=== PATIENT | female | born 1985 | race Caucasian/White ===

== ENCOUNTER 2022-01-01 13:37 | Emergency (ER) | payer OTHER, SELFPAY ==
[2022-01-01] VITALS (23 sets, daily range): BP systolic 126–174; BP diastolic 63–89; PULSE 71–94; RESP 19–38; TEMP 36.3; O2SAT 93–100; BMI 49.7
[2022-01-01 14:34] LABS: Add Manual Diff / Slide Review NO; Basophils Absolute Auto 0 /uL (0-100); Basophils Percent Auto 0.6 % (0-2); Eosinophils Absolute Auto 300 /uL (0-450); Eosinophils Percent Auto 4.2 % (2-4); Hematocrit 41.2 % (36-46); Hemoglobin 13.2 g/dL (12.0-16.0); Lymphocytes Absolute Auto 1300 /uL (1100-4500); Lymphocytes Percent Auto 21.5 % (25-40); Mean Corpuscular HGB Conc 32.2 % (30-36); Mean Corpuscular Hemoglobin 23.9 PG (26-34); Mean Corpuscular Volume 74.3 fL (80-100); Monocytes Absolute Auto 500 /uL (0-900); Monocytes Percent Auto 7.8 % (3-14); Neutrophils Absolute Auto 4100 /uL (1500-7000); Neutrophils Percent Auto 65.9 % (50-75); Platelet Count 198 X10^3/uL (150-400); Red Blood Cell Count 5.54 X10^6/uL (4.0-5.2); Red Cell Distribution Width 18.1 % (11.6-14.8); White Blood Cell Count 6.2 X10^3/uL (4.5-11.0)
[2022-01-01 14:45] LABS: Alanine Aminotransferase 230 IU/L (<35); Albumin 4.4 g/dL (3.5-5.0); Albumin Globulin Ratio 1.1 (1.0-2.8); Alkaline Phosphatase 209 U/L (38-126); Aspartate Aminotransferase 99 IU/L (14-36); BUN Creatinine Ratio 11.1 (6-22); Bilirubin Total 4.3 mg/dL (0.2-1.3); Blood Urea Nitrogen 8 mg/dL (7-17); Calcium 9.6 mg/dL (8.4-10.2); Carbon Dioxide 27 mmol/L (22-32); Chloride 102 mmol/L (98-107); Estimated Glomerular Filt Rate > 60.0 mL/min (>60); Globulin 3.9 g/dL (1.7-4.1); Glucose 107 mg/dL (70-100); HEMOLYSIS < 15 (0-50); Lipase 46 U/L (23-300); Potassium 3.8 mmol/L (3.4-5.1); Sodium 139 mmol/L (137-145); Total Protein 8.3 g/dL (6.3-8.2)
--- NOTE | 2022-01-01 17:10 | DI.US.S_ITS ---
PROCEDURE: US ABDOMEN COMPLETE INDICATIONS: JAUNDICE TECHNIQUE: Real-time scanning was performed of the abdominal and retroperitoneal organs, with image documentation. COMPARISON: None. FINDINGS: Liver: Liver is enlarged and measures 21.3 cm in length. Diffusely increased liver parenchymal echotexture is seen. No gross discrete hepatic lesion is noted. Gallbladder: Multiple stones are seen in dependent portion of gallbladder lumen. No gallbladder wall thickening or pericholecystic fluid. No sonographic Castorena sign. Biliary ducts: No definite intrahepatic biliary ductal dilatation is seen although evaluation is slightly limited due to poor penetration through the liver.. Extrahepatic bile duct caliber measures 10 mm. Normal is 6-7 mm or less in diameter, or 10 mm or less post-cholecystectomy. Pancreas: Pancreas is not visualized. Spleen: Spleen is normal in size and homogeneous in echotexture. Kidneys: Kidneys are normal in size and echotexture. Right kidney measures 10.4 cm long; left kidney measures 11 cm long. No gross hydronephrosis or nephrolithiasis. No gross solid masses. Aorta: Visualized aorta is normal in caliber at less than 3 cm. Iliacs: Not visualized IVC: Not visualized Miscellaneous: No free abdominal fluid. IMPRESSION: 1. Limited study due to poor penetration through the liver and overlying bowel gas. 2. Hepatomegaly and hepatic steatosis. No definite discrete hepatic lesion is seen. 3. Cholelithiasis. No sonographic evidence of acute cholecystitis. 4. Prominence of common bile duct. No definite choledocholithiasis is seen. No definite intrahepatic biliary ductal dilatation. Dictated by: Prateek Burch M.D. on 01/01/2022 at 17:51 Approved by: Prateek Burch M.D. on 01/01/2022 at 17:53
--- NOTE | 2022-01-01 18:56 | ED.ABDPAIN ---
HPI - Abdominal Pain General Chief Complaint: Abdominal Pain Stated Complaint: jaundice Time Seen by Provider: 01/01/22 17:04 Source: patient Mode of arrival: Family Vehicle History of Present Illness HPI narrative: 36F nonsmoker with a history of hypothyroid presents with family in the chief complaint of worsening epigastric and right upper quadrant pain, particularly after eating. She states that it radiates to her back. She has been having these issues off and on for a few months. She had engaged in 1 telehealth visit with her physician and was prescribed Bentyl which seems to help her pain. She started getting yellowing of her skin and quite itchy a few days ago and presents here for evaluation. She occasionally becomes nauseated and has little vomiting. She has had occasional loose stools but not any significant change. She denies any dysuria, frequency or urgency. She denies any alcohol or Tylenol use Related Data Home Medications Medication Instructions Recorded Confirmed leuprolide 3.75 mg intramuscular ONCE A MONTH #0 11/27/12 syringe kit (Lupron Depot) Previous Rx's Medication Instructions Recorded levothyroxine 125 mcg tablet 0.125 mg PO Q DAY #30 tab 09/08/16 (Levoxyl) Allergies Allergy/AdvReac Type Severity Reaction Status Date / Time INGREDIENT: NKDA - NO KNOWN Allergy Unknown Uncoded 01/18/18 12:15 DRUG ALLERGIES Review of Systems Review of Systems Narrative: GENERAL: See HP HEENT: Denies sinus pain, ear pain, sore throat, difficulty swallowing, dizziness. RESPIRATORY: Denies dyspnea, cough, wheezing, hemoptysis, sputum. CARDIOVASCULAR: Denies chest pain, palpitations, orthopnea, edema, GASTROINTESTINAL: See HPI : Denies dysuria, frequency, incontinence, hematuria, urinary retention. MUSCULOSKELETAL: denies weakness, joint pain, or bony pain SKIN: See HPI NEUROLOGIC: Denies weakness, headache, numbness, change in speech, confusion, seizures, incoordination. PSYCHIATRIC: No concerning psychosocial issues. 12 point review of systems is negative except for those stated above Patient History Surgical History Status post delivery (09/21/13) Status post laparotomy Status post LASIK surgery Social History Smoking Status: Never smoker Smoking Status: Never smoker alcohol intake frequency: 0-2 drinks per day Substance Use Type: does not use Exam Narrative Exam Narrative: GENERAL: [36] year old patient appears stated age. Well-developed patient, in mild distress. HEAD: Atraumatic. Normocephalic. EYES: Pupils equal round and reactive. Extraocular motions intact. Mild scleral icterus. No injection or drainage. ENT: Nose without bleeding, purulent drainage. Throat without erythema, tonsillar hypertrophy or exudate. Airway patent. NECK: Trachea midline. Non tender CARDIOVASCULAR: Regular rate and rhythm without murmurs, gallops, or rubs. RESPIRATORY: Clear to auscultation. Breath sounds equal bilaterally. No wheezes, rales, or rhonchi. GASTROINTESTINAL: Abdomen soft, mild epigastric discomfort, no guarding nondistended. Bowel sounds present EXTREMITIES: No edema or joint tenderness. BACK: Nontender without deformity or crepitance. No flank tenderness. NEURO: AOx3. SKIN: Mild jaundice No rash or erythema of visible areas Initial Vital Signs Initial Vital Signs: Vital Signs Temperature 97.3 F L 01/01/22 13:55 Pulse Rate 85 01/01/22 13:55 Respiratory Rate 20 01/01/22 13:55 Blood Pressure 156/85 H 01/01/22 13:55 Pulse Oximetry 99 01/01/22 13:55 Course Orders Ordered: ED Orders 01/01/22 21:54 COVID19 -Nasal swab/Pre-Proc Stat 01/02/22 05:18 CBC Auto Diff [Complete Blood Count AUTO DIFF] Stat CMP [Comprehensive Metabolic Panel] Stat Discontinued Medications Piperacillin Sod/Tazobactam (Sod 4.5 gm/ Sodium Chloride) 100 mls @ 200 mls/hr IV NOW ONE Stop: 01/01/22 21:41 Last Infusion: 01/01/22 22:32 Dose: 0 mls/hr Documented by: Admin: 01/01/22 21:49 Dose: 200 mls/hr Documented by: MAYNOR Consultations Consultation #1: discussed with [facility]. They have called multiple facilities and currently no beds at [facility], [facility]. They recommend we make other calls to non-[facility] facilities - no beds - no beds [facility] - no beds [facility] - no beds Consultation #2: has called back. Dr. Aguilera (hospitalist) is happy to accept patient. OK to call for transport Time: 04:32 Vital Signs Vital signs: Vital Signs - 8 hr 01/01/22 22:30 01/01/22 22:31 01/01/22 23:00 Pulse Rate 78 75 78 Blood Pressure 139/75 Pulse Oximetry 99 99 99 01/01/22 23:01 01/01/22 23:30 01/02/22 00:00 Pulse Rate 74 72 84 Blood Pressure 135/71 126/68 130/72 Pulse Oximetry 99 97 97 01/02/22 00:30 01/02/22 00:31 01/02/22 01:00 Pulse Rate 80 75 75 Blood Pressure 126/68 133/65 Pulse Oximetry 97 97 96 01/02/22 01:30 01/02/22 01:31 01/02/22 02:00 Pulse Rate 82 74 83 Blood Pressure 119/57 L 123/67 Pulse Oximetry 96 97 96 01/02/22 02:30 01/02/22 03:00 01/02/22 03:01 Pulse Rate 73 60 65 Blood Pressure 131/71 135/58 L Pulse Oximetry 95 94 94 01/02/22 03:30 01/02/22 04:00 01/02/22 04:30 Pulse Rate 75 73 67 Blood Pressure 141/70 H 137/73 Pulse Oximetry 96 96 96 MDM - Abdominal Pain Lab Data Result diagrams: 01/01/22 14:23 01/01/22 14:23 Labs: Lab Results 01/01/22 01/01/22 01/01/22 Range/Units 14:23 14:23 21:54 WBC 6.2 (4.5-11.0) X10^3/uL RBC 5.54 H (4.0-5.2) X10^6/uL Hgb 13.2 (12.0-16.0) g/dL Hct 41.2 (36-46) % MCV 74.3 L (80-100) fL MCH 23.9 L (26-34) PG MCHC 32.2 (30-36) % RDW 18.1 H (11.6-14.8) % Plt Count 198 (150-400) X10^3/uL Neut % (Auto) 65.9 (50-75) % Lymph % (Auto) 21.5 L (25-40) % Rush % (Auto) 7.8 (3-14) % Eos % (Auto) 4.2 H (2-4) % Baso % (Auto) 0.6 (0-2) % Neut # (Auto) 4100 (1392-9646) /uL Lymph # (Auto) 1300 (8283-0284) /uL Rush # (Auto) 500 (0-900) /uL Eos # (Auto) 300 (0-450) /uL Baso # (Auto) 0 (0-100) /uL Sodium 139 (137-145) mmol/L Potassium 3.8 (3.4-5.1) mmol/L Chloride 102 (98-107) mmol/L Carbon Dioxide 27 (22-32) mmol/L BUN 8 (7-17) mg/dL Creatinine 0.72 (0.52-1.04) mg/dL Estimated GFR > 60.0 (>60) mL/min BUN/Creatinine Ratio 11.1 (6-22) Glucose 107 H (70-100) mg/dL Calcium 9.6 (8.4-10.2) mg/dL Total Bilirubin 4.3 H (0.2-1.3) mg/dL AST 99 H (14-36) IU/L ALT 230 H (<35) IU/L Alkaline Phosphatase 209 H (38-126) U/L Total Protein 8.3 H (6.3-8.2) g/dL Albumin 4.4 (3.5-5.0) g/dL Globulin 3.9 (1.7-4.1) g/dL Albumin/Globulin Ratio 1.1 (1.0-2.8) Lipase 46 (23-300) U/L SARS-CoV-2 (PCR) Negative (Negative) Point of care testing: Point of Care Testing Test Results Negative Imaging Data US - abdomen: Radiologist's Impression: [address] [address] Ultrasound Report Signed Patient: Laurie Phan MR#: [id number] : 1985 Acct:[id number] Age/Sex: 36 / F Date of Service: 01/01/22 Loc: ED Accession Number: [id number] ?? Procedure: US abdomen complete Ordering Provider: Lorenzo Gutierrez MD PROCEDURE:? US ABDOMEN COMPLETE ? INDICATIONS:? JAUNDICE ? TECHNIQUE:? Real-time scanning was performed of the abdominal and retroperitoneal organs, with image documentation.? ? COMPARISON:? None. ? FINDINGS:? ? Liver:? Liver is enlarged and measures 21.3 cm in length.? Diffusely increased liver parenchymal echotexture is seen.? No gross discrete hepatic lesion is noted. ? Gallbladder:? Multiple stones are seen in dependent portion of gallbladder lumen.? No gallbladder wall thickening or pericholecystic fluid.? No sonographic Castorena sign. ? Biliary ducts:? No definite intrahepatic biliary ductal dilatation is seen although evaluation is slightly limited due to poor penetration through the liver..? Extrahepatic bile duct caliber measures 10 mm.? Normal is 6-7 mm or less in diameter, or 10 mm or less post-cholecystectomy.? ? Pancreas:? Pancreas is not visualized. ? Spleen:? Spleen is normal in size and homogeneous in echotexture.? ? Kidneys:? Kidneys are normal in size and echotexture.? Right kidney measures 10.4 cm long; left kidney measures 11 cm long.? No gross hydronephrosis or nephrolithiasis.? No gross solid masses.? ? Aorta:? Visualized aorta is normal in caliber at less than 3 cm.? ? Iliacs:? Not visualized ? IVC:? Not visualized ? Miscellaneous:? No free abdominal fluid.? ? ? IMPRESSION:? 1. Limited study due to poor penetration through the liver and overlying bowel gas. 2. Hepatomegaly and hepatic steatosis.? No definite discrete hepatic lesion is seen. 3. Cholelithiasis.? No sonographic evidence of acute cholecystitis. 4. Prominence of common bile duct.? No definite choledocholithiasis is seen.? No definite intrahepatic biliary ductal dilatation. ? ? Dictated by: Prateek Burch M.D. on 01/01/2022 at 17:51 ? ? Approved by: Prateek Burch M.D. on 01/01/2022 at 17:53 ? MRCP: Radiologist's Impression: Chart Viewer Diagnostics Subcategory All Activity ??:?? All Time ??:?? All Subcategories Filter Laboratory Imaging Microbiology Pathology Blood Bank Tests Cardiovascular Other Specialty DATE TYPE STATUS REF RANGE/AUTHOR Hx 01/01/22 18:57 Abdomen MRI Signed Caio Wynne 01/01/22 17:10 Abdomen Ultrasound Signed Prateek Burch Maren G ED 36, F?1985 MRN#? [id number] REG ER,?Main ED??R05?? 167.64cm 139.706kg BMI: 49.7kg/m? Abdominal Pain Acc#? [id number] Resus Status Not Ordered No Hx Avail Special Indicators No Data to Display Home Meds Not Confirmed Prescription Monitoring Program MEDICATIONS (INSTRUCTIONS) LAST TAKEN Active ??leuprolide [Lupron Depot] ??ONCE A MONTH#0 ??levothyroxine [Levoxyl] ??0.125 mgPOQ DAY#30 tab Allergies [INGREDIENT: NKDA - NO KNOWN DRUG ALLERGIES] Problems ? ONSET Endometriosis 04/24/14 Vital Signs Today 04:30 BP 137/73? Pulse 67? O2 Sat 96? Diagnostics Reports Laurie Phan??36??F??1985 ? Allergy/Adv: [INGREDIENT: NKDA - NO KNOWN DRUG ALLERGIES] (More??) Close Abdomen MRI (Signed) Caio Wynne - 01/01/22 Abdomen Ultrasound (Signed) Prateek Burch - 01/01/22 Launch?[place] [address] Magnetic Resonance Report Signed Patient: Laurie Phan MR#: [id number] : 1985 Acct:[id number] Age/Sex: 36 / F Date of Service: 01/01/22 Loc: ED Accession Number: [id number] ?? Procedure: MR abdomen wo con Ordering Provider: Lucien Fulton D.O. PROCEDURE:? MR ABDOMEN WO CON ? INDICATIONS:? RUQ pain, jaundice, dilated CBD ? TECHNIQUE:? Coronal HASTE through the abdomen, axial 2-D FLASH in- and [id number], and breath-hold T2 FSE with fat saturation through the biliary system and pancreas.? Oblique coronal and axial thin-slice HASTE, radial thick-slab HASTE centered on the extrahepatic bile ducts.? ? ? COMPARISON:? [facility], CT, KUB - CT (PNL), 02/16/2011, 13:44.? [facility], US, US ABDOMEN COMPLETE, 01/01/2022, 17:22. ? FINDINGS:? Image quality:? Diagnostic with mild motion artifact.? ? Pancreas and biliary system:? Multiple gallstones are present within the gallbladder without associated wall thickening or pericholecystic fluid to suggest acute cholecystitis.? There is mild central intrahepatic biliary ductal dilatation as well as mild extrahepatic ductal dilatation.? The common bile duct measures up to 0.8 cm in dimension.? There is a filling defect within the distal common bile duct measuring up to 0.7 cm consistent with choledocholithiasis.? No pancreatic duct dilatation.? No peripancreatic edema or fluid collections. ? Other solid organs:? The liver demonstrates heterogeneous signal dropout on [id number] imaging consistent with heterogeneous fatty infiltration.? Spleen is normal in size.? No adrenal nodules.? Kidneys demonstrate no hydronephrosis. ? Nodes and vessels:? No retroperitoneal or mesenteric adenopathy by size criteria.? Aorta and inferior vena cava are normal in size.? ? Bowel and peritoneum:? Visualized bowel loops are normal in caliber.? No free fluid.? ? Lung bases:? No basal pleural effusions.? Heart size is normal.? ? Bones and soft tissues:? No ventral hernias.? Bone marrow is of normal overall signal.? ? IMPRESSION:? ? 1. Cholelithiasis without MRI evidence of acute cholecystitis. ? 2. Choledocholithiasis with mild biliary ductal dilatation. ? 3. No pancreatic duct dilatation or MRI evidence of acute pancreatitis. ? 4. Hepatic steatosis.? ? ? Dictated by: Caio Wynne M.D. on 01/01/2022 at 21:02 ? ? Approved by: Caio Wynne M.D. on 01/01/2022 at 21:12 ? Critical Care Time Critical Care Time Critical Care Time: Yes Total Critical Care Time: 35 Attestation: The high probability of a clinically significant, sudden or life threatening deterioration of the [GI] system(s) required my full and direct attention, intervention and personal management. The aggregate critical care time was [35] minutes. This time is in addition to time spent performing reported procedures but includes the following: [x] Data Review and interpretation [x] Patient assessment and monitoring of vital signs [x] Documentation [x] Medication orders and management Discharge Plan Departure Patient Disposition: [facility] Clinical Impression: Choledocholithiasis Prescriptions: No Action leuprolide [Lupron Depot] 3.75 MG syringe kit ONCE A MONTH Qty: 0 0RF levothyroxine [Levoxyl] 125 MCG tablet 0.125 mg PO Q DAY Qty: 30 11RF
--- NOTE | 2022-01-01 18:57 | DI.MRI.S_ITS ---
PROCEDURE: MR ABDOMEN WO CON INDICATIONS: RUQ pain, jaundice, dilated CBD TECHNIQUE: Coronal HASTE through the abdomen, axial 2-D FLASH in- and [id number], and breath-hold T2 FSE with fat saturation through the biliary system and pancreas. Oblique coronal and axial thin-slice HASTE, radial thick-slab HASTE centered on the extrahepatic bile ducts. COMPARISON: [facility], CT, KUB - CT (PNL), 02/16/2011, 13:44. [facility], US, US ABDOMEN COMPLETE, 01/01/2022, 17:22. FINDINGS: Image quality: Diagnostic with mild motion artifact. Pancreas and biliary system: Multiple gallstones are present within the gallbladder without associated wall thickening or pericholecystic fluid to suggest acute cholecystitis. There is mild central intrahepatic biliary ductal dilatation as well as mild extrahepatic ductal dilatation. The common bile duct measures up to 0.8 cm in dimension. There is a filling defect within the distal common bile duct measuring up to 0.7 cm consistent with choledocholithiasis. No pancreatic duct dilatation. No peripancreatic edema or fluid collections. Other solid organs: The liver demonstrates heterogeneous signal dropout on [id number] imaging consistent with heterogeneous fatty infiltration. Spleen is normal in size. No adrenal nodules. Kidneys demonstrate no hydronephrosis. Nodes and vessels: No retroperitoneal or mesenteric adenopathy by size criteria. Aorta and inferior vena cava are normal in size. Bowel and peritoneum: Visualized bowel loops are normal in caliber. No free fluid. Lung bases: No basal pleural effusions. Heart size is normal. Bones and soft tissues: No ventral hernias. Bone marrow is of normal overall signal. IMPRESSION: 1. Cholelithiasis without MRI evidence of acute cholecystitis. 2. Choledocholithiasis with mild biliary ductal dilatation. 3. No pancreatic duct dilatation or MRI evidence of acute pancreatitis. 4. Hepatic steatosis. Dictated by: Caio Wynne M.D. on 01/01/2022 at 21:02 Approved by: Caio Wynne M.D. on 01/01/2022 at 21:12
[2022-01-01] MEDS: PIPERACILLIN/TAZO 4.5 GM in SODIUM CHLORIDE 0.9% 100 ML 200 ML IV (21:49)
[2022-01-01 22:17] LABS: COVID19 -Nasal RAPID Negative (Negative)
[2022-01-02] VITALS (14 sets, daily range): BP systolic 119–141; BP diastolic 57–77; PULSE 60–84; RESP 20; O2SAT 94–97
== END 2022-01-02 08:02 | disposition short-term general hospital (02) ==
PROVIDERS: Emergency Medicine; Emergency Provider Emergency Medicine; Family Provider Obstetrics & Gynecology
DX: K80.50 Calculus of bile duct without cholangitis or cholecystitis without obstruction (principal); R03.0 Elevated blood-pressure reading, without diagnosis of hypertension; Z20.822 Contact with and (suspected) exposure to COVID-19
CPT/HCPCS: 36415; 74181; 76700; 80053; 81025; 83690; 85025; 87635; 93005; 96365; 99285; 99291; C9803; J2543